=== PATIENT | female | born 1980 | race Caucasian/White ===

== ENCOUNTER 2019-07-10 13:50 | Outpatient (CLI) | payer OTHER, SELFPAY ==
--- NOTE | ~2019-07-10 | US_ITS ---
EXAMINATION: US venous doppler LE EXAM DATE: 07/10/2019 14:31 INDICATION: History of DVT. On blood thinners. TECHNIQUE: Multiple grayscale, color flow and Doppler images of the left lower extremity deep venous system were obtained and reviewed. Comparison is made to prior examination from 04/22/2019. FINDINGS: The left common femoral, femoral and profunda veins demonstrate normal color flow, respirat ory variation, augmentation and compressibility. Compressibility, color flow confirmed within the le ft popliteal, posterior tibial, peroneal, and greater saphenous veins. Previously seen femoral, sydney angelo DVT has resolved. IMPRESSION: No left lower extremity deep venous thrombosis. Reviewed, dictated and finalized at location B. SINGER
== END 2019-07-10 13:51 | disposition home or self-care (01) ==
PROVIDERS: PCP Internal Medicine; Visit Provider Internal Medicine
DX: I82.412 Acute embolism and thrombosis of left femoral vein (principal); Z79.01 Long term (current) use of anticoagulants
CPT/HCPCS: 93971

== ENCOUNTER 2019-08-28 14:36 | Outpatient (CLI) | payer OTHER, SELFPAY ==
[2019-08-28 15:01] LABS: Basophils Percent Auto 0.4 % (0.2-1.2); Eosinophils Percent Auto 0.6 % (0-4.4); Hematocrit 37.8 % (37.0-47.0); Hemoglobin 12.6 g/dL (12.0-15.0); Immature Granulocyte Absolute 0.01 K/mm3 (0.00-0.031); Immature Granulocyte Percent A 0.1 % (0-0.5); Lymphocytes Absolute Auto 2.13 K/mm3 (0.9-3.2); Lymphocytes Percent Auto 31.1 % (18.3-44.2); Mean Corpuscular HGB Conc 33.3 g/dl (32-36); Mean Corpuscular Hemoglobin 30.4 pg (26-34); Mean Corpuscular Volume 91.3 fl (80-100); Mean Platelet Volume 9.4 fl (7.4-10.4); Monocytes Absolute Auto 0.6 K/mm3 (0.1-0.6); Monocytes Percent Auto 8.2 % (2.6-8.5); Neutrophils Absolute Auto 4.1 K/mm3 (1.3-6.7); Neutrophils Percent Auto 59.6 % (45.5-73.1); Platelet Count Result 285 k/mm3 (150-375); Red Blood Count 4.14 M/mm3 (4.2-5.4); Red Cell Distribution Width 12.7 % (11.5-14.5); White Blood Count 6.9 K/mm3 (4.5-10.0)
[2019-08-28 16:42] LABS: INR 1.1; Prothrombin Time 13.5 Seconds (11.1-14.7)
[2019-08-30 03:49] LABS: Anti Cardio Antibody IgM <12 MPL (<=12); Anti Cardiolipin Antibody IgA <11 APL (<=11); Anti Cardiolipin Antibody IgG <14 GPL (<=14)
[2019-08-30 04:01] LABS: Homocysteine 6.3 umol/L (<10.4)
[2019-08-30 04:39] LABS: Lupus dRVVT 1:1 Mix Interpreta Not Indicated; Lupus dRVVT Screen 30 sec (<=45); PTT-LA Screen 31 sec (<=40)
[2019-08-30 21:43] LABS: Antithrombin III Activity 104 % activity (80-120)
[2019-09-03 12:21] LABS: APC Ratio 4.5 ratio (>=2.1)
== END 2019-08-28 14:37 | disposition home or self-care (01) ==
LOC: ANHLAB 14:38
PROVIDERS: PCP Internal Medicine; Visit Provider Internal Medicine Hematology & Oncology
DX: I82.5Z2 Chronic embolism and thrombosis of unspecified deep veins of left distal lower extremity (principal); Z86.718 Personal history of other venous thrombosis and embolism
CPT/HCPCS: 36415; 81240; 81241; 83090; 85025; 85300; 85303; 85306; 85307; 85597; 85598; 85610; 85613; 85670; 85730; 86146; 86147

== ENCOUNTER 2019-11-06 15:51 | Outpatient (CLI) | payer OTHER, SELFPAY ==
--- NOTE | ~2019-11-06 | US_ITS ---
EXAMINATION: US venous doppler [facility] EXAM DATE: 11/06/2019 16:46 INDICATION: Acute left leg pain. TECHNIQUE: Multiple grayscale, color flow and Doppler images of the left lower extremity deep venous system were obtained and reviewed. Comparison is made to prior examination from 07/10/2019. FINDINGS: The left common femoral, femoral and profunda veins demonstrate normal color flow, respirat ory variation, augmentation and compressibility. Compressibility, color flow confirmed within the le ft popliteal, posterior tibial, peroneal, and greater saphenous veins. IMPRESSION: 1. No left lower extremity deep venous thrombosis. Reviewed, dictated and finalized at location A.
== END 2019-11-06 15:52 | disposition home or self-care (01) ==
PROVIDERS: PCP Internal Medicine; Visit Provider Internal Medicine Hematology & Oncology
DX: I82.452 Acute embolism and thrombosis of left peroneal vein (principal)
CPT/HCPCS: 93971

== ENCOUNTER 2020-01-09 16:43 | Outpatient (CLI) | payer OTHER, SELFPAY ==
--- NOTE | ~2020-01-09 | MM_ITS ---
EXAMINATION: MM screening corey BI w david HISTORY: Screening TECHNIQUE: Craniocaudal and mediolateral oblique 3-D tomosynthesis images were obtained and synthetic 2-D images were generated. CAD analysis was submitted and interpreted. COMPARISON: 01/07/2012 BREAST PARENCHYMAL COMPOSITION: The breasts are heterogeneously dense, which may obscure small masses . FINDINGS: There is no evidence of suspicious mass, calcification, or architectural distortion to sugg est malignancy in either breast. There has been no suspicious interval change. IMPRESSION: 1. No mammographic evidence of malignancy. 2. Recommend routine screening mammography in one year. BI-RADS Category 1: Negative Reviewed, dictated and finalized at location A.
== END 2020-01-09 16:44 | disposition home or self-care (01) ==
LOC: ANHIMG 16:44
PROVIDERS: PCP Internal Medicine; Visit Provider Obstetrics & Gynecology
DX: Z12.31 Encounter for screening mammogram for malignant neoplasm of breast (principal)
CPT/HCPCS: 77063; 77067

== ENCOUNTER 2020-05-09 15:37 | Emergency (ER) | payer OTHER, SELFPAY ==
--- NOTE | ~2020-05-09 | US_ITS ---
EXAMINATION: US venous doppler [facility] DATE: 05/09/2020 16:11 INDICATION: Left lower limb pain TECHNIQUE: Acosta scale images without and with compression and Doppler images of the left lower extrem ity veins were obtained. COMPARISON: None FINDINGS: The left common femoral vein, profunda femoral vein, femoral vein, popliteal vein, peroneal trunk, posterior tibial veins, and greater saphenous vein are patent. IMPRESSION: 1. Patent left lower extremity veins. No evidence of deep venous thrombosis. Reviewed, dictated and finalized at location A. 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
[2020-05-09 15:42] VITALS: BP 140/60; PULSE 71; RESP 17; TEMP 36.5; O2SAT 100
[2020-05-09 16:48] LABS: Basophils Percent Auto 0.4 % (0.2-1.2); Eosinophils Absolute Auto 0.1 K/mm3 (0-0.3); Eosinophils Percent Auto 0.7 % (0-4.4); Hematocrit 37.1 % (37.0-47.0); Hemoglobin 12.9 g/dL (12.0-15.0); Immature Granulocyte Absolute 0.03 K/mm3 (0.00-0.031); Immature Granulocyte Percent A 0.4 % (0-0.5); Lymphocytes Percent Auto 31.3 % (18.3-44.2); Mean Corpuscular HGB Conc 34.8 g/dl (32-36); Mean Corpuscular Hemoglobin 30.7 pg (26-34); Mean Corpuscular Volume 88.3 fl (80-100); Mean Platelet Volume 9.8 fl (7.4-10.4); Monocytes Absolute Auto 0.6 K/mm3 (0.1-0.6); Monocytes Percent Auto 7.5 % (2.6-8.5); Neutrophils Absolute Auto 4.4 K/mm3 (1.3-6.7); Neutrophils Percent Auto 59.7 % (45.5-73.1); Platelet Count Result 344 k/mm3 (150-375); White Blood Count 7.3 K/mm3 (4.5-10.0)
[2020-05-09 16:57] LABS: INR 1.1; Prothrombin Time 14.5 Seconds (11.1-14.7)
[2020-05-09 16:58] LABS: Partial Thromboplastin Time 27.5 SECONDS (22.3-36.8)
[2020-05-09 17:02] LABS: D Dimer 0.22 ug/mL (<0.48)
--- NOTE | 2020-05-09 17:13 | ED.EXTPRO ---
HPI - Extremity Problem General Chief complaint: Extremity Problem,Nontraumatic Stated complaint: ?? dvt LEFT LEG Time Seen by Provider: 05/09/20 16:19 Source: RN notes reviewed History of Present Illness HPI Narrative: Patient presents emergency department from home for left calf pain. Patient states the pain has been ongoing for the past 4 days states mild aching in the left posterior calf. She states she became worried because she had a DVT approximately 1 year ago. The DVT was following left hip surgery and she is no longer on blood thinners she did follow-up with hematology following this and it was decided that time she is no longer needed blood thinners patient denies any direct trauma or injury she denies any pain of the knee or ankle full range of motion of both Related Data Allergies Allergy/AdvReac Type Severity Reaction Status Date / Time No Known Allergies Allergy Unknown Verified 05/09/20 15:46 Review of Systems Review of Systems: Narrative: Gen.: Denies fevers or chills ENT: Denies congestion Respiratory: Denies shortness of breath or cough CV: Denies chest pain or palpitations GI: Denies abdominal pain nausea, emesis or diarrhea Musculoskeletal: See HPI Neuro: Denies numbness, tingling, weakness or focal weakness Skin: Denies rash Except as documented, all other systems reviewed and negative PMF Past Medical History Medical History DVT (deep venous thrombosis) History of DVT (deep vein thrombosis) Labral tear of left hip joint Surgical History Surgical History (Updated 04/22/19 @ 09:43 by Duncan Franklin) Hx of section Status post hip surgery lt periacetabular osteotomy with labral repair Family History Family History (Updated 03/15/19 @ 13:07 by DOCTOR UNKNOWN) Father Hypertension Grandparent Hypertension Social History Social History Smoking status: Never smoker Alcohol intake: current Gender identity (if verbalized by the patient): Female Exam Narrative: Exam Narrative: APPEARANCE: No acute distress, nontoxic, resting in bed Eyes: EOMI HEENT: Normocephalic, atraumatic, RESPIRATORY: No respiratory distress MUSCULOSKELETAl: Mild tenderness over left posterior calf Erythema or ecchymosis no tender of the ankle or knee with full range of motion of both dorsalis pedis pulse 2+ neurovascular intact NEURO: Awake and alert. Following commands, speech normal, no focal deficits SKIN:: Warm, dry. Normal Color no rash or lesions Course Course Emergency Course: Discussed with patient results of workup and diagnosis. Discussed need for follow-up with primary care, proper use of medication, and reasons to return to the emergency department. Patient understands and agrees to current treatment plan Vital Signs Vital signs: Vital Signs Temperature 97.7 F 05/09/20 15:42 Pulse Rate 71 05/09/20 15:42 Respiratory Rate 17 05/09/20 15:42 Blood Pressure 140/60 05/09/20 15:42 Pulse Oximetry 100 05/09/20 15:42 Temperature 97.7 F 05/09/20 15:42 Pulse Rate 71 05/09/20 15:42 Respiratory Rate 17 05/09/20 15:42 Blood Pressure 140/60 05/09/20 15:42 Pulse Oximetry 100 05/09/20 15:42 MDM - Extremity (Nontraumatic) Lab Data Result diagrams: 05/09/20 15:47 Labs: Lab Results 05/09/20 05/09/20 Range/Units 15:47 15:47 WBC 7.3 (4.5-10.0) K/mm3 RBC 4.20 (4.2-5.4) M/mm3 Hgb 12.9 (12.0-15.0) g/dL Hct 37.1 (37.0-47.0) % MCV 88.3 (80-100) fl MCH 30.7 (26-34) pg MCHC 34.8 (32-36) g/dl RDW 12.0 (11.5-14.5) % Plt Count 344 (150-375) k/mm3 MPV 9.8 (7.4-10.4) fl Immature Gran % (Auto) 0.4 (0-0.5) % Neut % (Auto) 59.7 (45.5-73.1) % Lymph % (Auto) 31.3 (18.3-44.2) % [place] % (Auto) 7.5 (2.6-8.5) % Eos % (Auto) 0.7 (0-4.4) % Baso % (Auto) 0.4 (0.2-1.2) % Lymph # (Auto
[2020-05-09 17:46] VITALS: BP 131/90; PULSE 63; RESP 16; TEMP 36.8; O2SAT 100
== END 2020-05-09 17:47 | disposition home or self-care (01) ==
PROVIDERS: Emergency Provider Emergency Medicine; PCP Internal Medicine
DX: M79.662 Pain in left lower leg (principal); Z86.718 Personal history of other venous thrombosis and embolism
CPT/HCPCS: 36415; 85025; 85380; 85610; 85730; 93971; 99284

== ENCOUNTER 2021-03-18 14:35 | Outpatient (CLI) | payer OTHER, SELFPAY ==
--- NOTE | ~2021-03-18 | MM_ITS ---
EXAMINATION: MM screening corey BI w david HISTORY: Screening mammogram TECHNIQUE: Craniocaudal and mediolateral oblique 3-D tomosynthesis images were obtained and synthetic 2-D images were generated. CAD analysis was submitted and interpreted. COMPARISON: 02/09/2020 bilateral digital screening mammogram BREAST PARENCHYMAL COMPOSITION: The breasts are heterogeneously dense, which may obscure small masses . FINDINGS: Biopsy marker on the left; history of prior benign left breast biopsy. There is no evidence of suspicious mass, calcification, or architectural distortion to suggest malignancy in either breas t. There has been no suspicious interval change. IMPRESSION: 1. No mammographic evidence of malignancy. 2. Recommend routine screening mammography in one year. BI-RADS Category 1: Negative Reviewed, dictated and finalized at location A.
== END 2021-03-18 14:36 | disposition home or self-care (01) ==
PROVIDERS: PCP Internal Medicine; Visit Provider Obstetrics & Gynecology
DX: Z12.31 Encounter for screening mammogram for malignant neoplasm of breast (principal)
CPT/HCPCS: 77063; 77067

== ENCOUNTER 2022-04-09 08:46 | Outpatient (CLI) | payer OTHER, SELFPAY ==
--- NOTE | ~2022-04-09 | MM_ITS ---
EXAMINATION: MM screening corey BI w david HISTORY: Screening mammogram TECHNIQUE: Craniocaudal and mediolateral oblique 3-D tomosynthesis images were obtained and synthetic 2-D images were generated. CAD analysis was submitted and interpreted. COMPARISON: 03/18/2021, 01/09/2020 bilateral screening mammogram examinations BREAST PARENCHYMAL COMPOSITION: The breasts are heterogeneously dense, which may obscure small masses . FINDINGS: Biopsy marker on the left; history of prior benign left breast biopsy. There is no evidence of suspicious mass, calcification, or architectural distortion to suggest malignancy in either breas t. There has been no suspicious interval change. IMPRESSION: 1. No mammographic evidence of malignancy. 2. Recommend routine screening mammography in one year. BI-RADS Category 1: Negative Reviewed, dictated and finalized at location A. 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
== END 2022-04-09 08:47 | disposition home or self-care (01) ==
LOC: ANHIMG 08:47
PROVIDERS: PCP Internal Medicine; Visit Provider Obstetrics & Gynecology
DX: Z12.31 Encounter for screening mammogram for malignant neoplasm of breast (principal)
CPT/HCPCS: 77063; 77067

== ENCOUNTER 2023-01-09 10:14 | Emergency (ER) | payer OTHER, SELFPAY ==
[2023-01-09 10:32] VITALS: BP 120/76; PULSE 74; RESP 16; TEMP 37.2; O2SAT 100
--- NOTE | 2023-01-09 10:49 | ED.EAR ---
HPI - Ear Problem General Chief complaint: Ear Stated complaint: left ear pain Time Seen by Provider: 01/09/23 10:56 Source: patient and RN notes reviewed Mode of arrival: ambulatory Limitations: no limitations History of Present Illness HPI Narrative: 42-year-old female presents with concern for left ear pain for 2 days. She denies drainage from the ear. Reports tenderness when she pulls on the ear. She denies fever, aches, chills, sweats. She denies nasal congestion, rhinorrhea, sore throat MD Complaint: ear pain Related Data Allergies Allergy/AdvReac Type Severity Reaction Status Date / Time No Known Allergies Allergy Unknown Verified 01/09/23 10:20 Review of Systems Review of Systems: CONSTITUTIONAL: Denies malaise, chills, sweats, or fever. EYES: Denies visual changes, redness, or discharge. ENT: Denies rhinorrhea, congestion, sinus pain, and sore throat. Reports left ear pain CARDIOVASCULAR: Denies chest pain, palpitations, or edema. RESPIRATORY: Denies cough. Denies dyspnea. GASTROINTESTINAL: Denies abdominal pain, nausea, vomiting, diarrhea SKIN: Denies rash or itching. MUSCULOSKELETAL: Denies myalgia. NEUROLOGIC: Denies headache. All systems reviewed & are unremarkable except as noted in HPI and below PMFSH Past Medical History Medical History DVT (deep venous thrombosis) History of DVT (deep vein thrombosis) Labral tear of left hip joint Surgical History Surgical History (Updated 04/22/19 @ 09:43 by Duncan Franklin) Hx of section Status post hip surgery lt periacetabular osteotomy with labral repair Family History Family History (Updated 03/15/19 @ 13:07 by DOCTOR UNKNOWN) Father Hypertension Grandparent Hypertension Social History Social History Smoking status: Never smoker Alcohol intake: current Alcohol use details: occasional Gender identity (if verbalized by the patient): Female Comments At time of signature, agree with nursing past medical, surgical, social and family history. There is no relevant family history pertinent to the presenting complaint Exam Narrative: GENERAL: Well-appearing, well-nourished, and in no acute distress. HEAD: Normocephalic EYES: PERRLA, conjunctivae clear ENT: Nares clear, turbinates edematous, clear discharge. Mucous membranes moist. TM pearly fishman with sharp light reflex bilaterally; left tragal tenderness with EAC erythema and edema, no drainage NECK: Supple. No lymphadenopathy CHEST: Clear to auscultation, breath sounds equal. No wheezing, rhonchi, rales, or stridor. No respiratory distress, speaks in full sentences. HEART: Regular rate and rhythm. No murmur heard. SKIN: Warm, dry, no rash. NEURO: Alert and oriented x3. PSYCH: Normal mood and affect Course Course Emergency Course: Patient is aware of diagnosis, understands and agrees to treatment plan. Anticipatory guidance given. Patient agrees to follow-up as directed and is aware of reasons to seek care at the emergency department. Portions of this record may have been created with voice recognition software Level of Care: Express Care Visit Vital Signs Vital signs: Vital Signs Temperature 98.9 F 01/09/23 10:32 Pulse Rate 74 01/09/23 10:32 Respiratory Rate 16 01/09/23 10:32 Blood Pressure 120/76 01/09/23 10:32 Pulse Oximetry 100 01/09/23 10:32 Oxygen Delivery Room Air 01/09/23 10:32 Temperature 98.9 F 01/09/23 10:32 Pulse Rate 74 01/09/23 10:32 Respiratory Rate 16 01/09/23 10:32 Blood Pressure 120/76 01/09/23 10:32 Pulse Oximetry 100 01/09/23 10:32 Oxygen Delivery Room Air 01/09/23 10:32 Reviewed. Medical Decision Making MDM Narrative Medical decision making narrative: Differential diagnosis considered: Johnson virus, strep pharyngitis, allergic rhinitis, upper respiratory tract infection, sinusi
== END 2023-01-09 10:58 | disposition home or self-care (01) ==
PROVIDERS: Emergency Provider Nurse Practitioner; PCP Internal Medicine
DX: H60.92 Unspecified otitis externa, left ear (principal); Z86.718 Personal history of other venous thrombosis and embolism
CPT/HCPCS: 99213; G0463

== ENCOUNTER → 2023-02-04 10:43 | Outpatient (CLI) | payer OTHER, SELFPAY ==
--- NOTE | ~2023-02-04 | US_ITS ---
EXAMINATION: US pelvic complete w TV DATE: 02/04/2023 11:12 INDICATION: Irregular menstruation TECHNIQUE: Multiple transabdominal and endovaginal sonographic images of the pelvis were obtained. COMPARISON: None. FINDINGS: The uterus measures 9.0 x 5.1 x 5.3 cm. The endometrial complex measures 12. The right ovar y measures 3.5 x 1.8 x 3.5 cm. The left ovary measures 2.6 x 1.6 x 2.0 cm. There is normal vascular f low in the ovaries. There is no free fluid in the pelvis. IMPRESSION: 1. No sonographic correlate for the patient's symptoms. Reviewed, dictated and finalized at location B.
== END ==
PROVIDERS: PCP Internal Medicine; Visit Provider Clinical Nurse Specialist
DX: N92.6 Irregular menstruation, unspecified (principal)
CPT/HCPCS: 76830; 76856

== ENCOUNTER 2023-03-31 16:22 | Emergency (ER) | payer OTHER, SELFPAY ==
--- NOTE | 2023-03-31 16:25 | ED.SKABFB ---
HPI - Skin/Abscess/Foreign Bdy General Chief complaint: Skin/Abscess/Foreign Body Stated complaint: Right Leg Wound Time Seen by Provider: 03/31/23 16:30 Source: patient, RN notes reviewed and old records reviewed Mode of arrival: ambulatory Limitations: no limitations History of Present Illness HPI narrative: 42-year-old female presents to the [facility] with complaints of a wound to the anterior posterior in of right lower leg. States approximately 9 days ago she hit it on a bleacher at her son's soccer game. Has been washing it and applying Neosporin. States that she thought it was getting better. Today it develop some swelling, tenderness to the area. Onset (ago): day(s) (9) Related Data Allergies Allergy/AdvReac Type Severity Reaction Status Date / Time No Known Allergies Allergy Unknown Verified 03/31/23 16:31 Review of Systems Review of Systems: All systems reviewed & are unremarkable except as noted in HPI and below Constitutional: Constitutional: Reports no additional constitutional complaints Eyes: Eyes: Reports no additional eye complaints ENT: Reports system reviewed and no additional complaints, except as documented Cardiovascular: Cardiovascular: Reports no additional cardiovascular complaints, Denies chest pain and Denies dyspnea Respiratory: Respiratory: Reports no additional respiratory complaints, Denies chest congestion, Denies cough and Denies dyspnea Gastrointestinal: Gastrointestinal: Reports no additional gastrointestinal complaints, Denies abdominal pain, Denies nausea and Denies vomiting Musculoskeletal: Musculoskeletal: Reports no additional musculoskeletal complaints Integumentary/Breasts: Skin/Breast: Reports as per HPI Neurologic: Reports system reviewed and no additional complaints, except as documented Psychiatric: Psychiatric: Reports no additional psychiatric complaints Allergic/Immunologic: Allergic/Immunologic: Reports no additional allergic/immunologic complaints [facility] Past Medical History Medical History DVT (deep venous thrombosis) History of DVT (deep vein thrombosis) Labral tear of left hip joint Surgical History Surgical History Hx of section Status post hip surgery lt periacetabular osteotomy with labral repair Family History Family History Father Hypertension Grandparent Hypertension Social History Social History Smoking status: Never smoker Alcohol intake: current Alcohol use details: occasional Gender identity (if verbalized by the patient): Female Comments At the time of my signature, I reviewed and agree with the nursing past medical, surgical, social, and family history. There is no relevant family history pertinent to the patient complaint. Exam Const: General: cooperative, healthy appearing, comfortable, no acute distress, well developed, alert and well nourished Nutritional Appearance: well nourished Orientation/consciousness: patient oriented x3 Limitations: no limitations HENMT: Head: normal to inspection Ears: hearing grossly normal bilaterally and external ears normal Face/Nose/Sinus: Normal external nose present, Normal nares present, Normal nasal mucous membranes and turbinates present, normal facial exam and face symmetric Face and sinus: normal facial exam and face symmetric Eyes: General: appearance normal, both eyes and all related structures Alignment and Position: alignment normal Periorbital: periorbital findings normal Pupils: Equal, round and reactive pupils present EOM: EOMs intact bilaterally Neck: Neck: normal visual inspection, full ROM, no lymphadenopathy and no meningeal signs Chest: Chest palpation & inspection: normal inspection of the chest Resp: Effort & Inspection: normal respira
[2023-03-31 16:30] VITALS: BP 135/86; PULSE 67; RESP 16; TEMP 36.6; O2SAT 100
== END 2023-03-31 16:49 | disposition home or self-care (01) ==
PROVIDERS: Emergency Provider Nurse Practitioner; PCP Internal Medicine
DX: L03.115 Cellulitis of right lower limb (principal); Z86.718 Personal history of other venous thrombosis and embolism; W22.09XA Striking against other stationary object, initial encounter
CPT/HCPCS: 99213; G0463

== ENCOUNTER 2023-05-24 10:10 | Outpatient (CLI) | payer OTHER, SELFPAY ==
--- NOTE | ~2023-05-24 | MM_ITS ---
EXAMINATION: MM screening corey BI w david HISTORY: Screening mammogram TECHNIQUE: Craniocaudal and mediolateral oblique 3-D tomosynthesis images were obtained and synthetic 2-D images were generated. Bilateral rotated lateral CC views. CAD analysis was submitted and interp reted. COMPARISON: 04/09/2022, 03/18/2021, 01/09/2020 bilateral screening mammogram examinations BREAST PARENCHYMAL COMPOSITION: The breasts are heterogeneously dense, which may obscure small masses . FINDINGS: Biopsy marker on the left; history of prior benign left breast biopsy. There is no evidence of suspicious mass, calcification, or architectural distortion to suggest malignancy in either breas t. There has been no suspicious interval change. IMPRESSION: 1. No mammographic evidence of malignancy. 2. Recommend routine screening mammography in one year. BI-RADS Category 1: Negative Reviewed, dictated and finalized at location A. 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
== END 2023-05-24 10:11 | disposition home or self-care (01) ==
PROVIDERS: PCP Internal Medicine; Visit Provider Obstetrics & Gynecology
DX: Z12.31 Encounter for screening mammogram for malignant neoplasm of breast (principal)
CPT/HCPCS: 77063; 77067

== ENCOUNTER 2023-05-27 07:55 | Outpatient (CLI) | payer OTHER, SELFPAY ==
[2023-05-27 08:21] LABS: Basophils Absolute Auto 0.1 K/mm3 (0.0-0.1); Basophils Percent Auto 0.8 % (0.2-1.2); Eosinophils Percent Auto 0.6 % (0-4.4); Hematocrit 41.4 % (37.0-47.0); Hemoglobin 13.5 g/dL (12.0-15.0); Immature Granulocyte Absolute 0.02 K/mm3 (0.00-0.031); Immature Granulocyte Percent A 0.3 % (0-0.5); Lymphocytes Absolute Auto 1.64 K/mm3 (0.9-3.2); Lymphocytes Percent Auto 26.3 % (18.3-44.2); Mean Corpuscular HGB Conc 32.6 g/dl (32-36); Mean Corpuscular Hemoglobin 29.9 pg (26-34); Mean Corpuscular Volume 91.8 fl (80-100); Mean Platelet Volume 9.4 fl (7.4-10.4); Monocytes Absolute Auto 0.5 K/mm3 (0.1-0.6); Monocytes Percent Auto 8.3 % (2.6-8.5); Neutrophils Percent Auto 63.7 % (45.5-73.1); Platelet Count Result 297 k/mm3 (150-375); Red Blood Count 4.51 M/mm3 (4.2-5.4); Red Cell Distribution Width 12.6 % (11.5-14.5); White Blood Count 6.2 K/mm3 (4.5-10.0)
== END 2023-05-27 07:56 | disposition home or self-care (01) ==
LOC: ANHSURGERY 07:57
PROVIDERS: PCP Internal Medicine; Visit Provider Obstetrics & Gynecology
DX: Z01.818 Encounter for other preprocedural examination (principal); D21.9 Benign neoplasm of connective and other soft tissue, unspecified
CPT/HCPCS: 36415; 85025; 86850; 86900; 86901

== ENCOUNTER 2023-06-03 00:43 | Day surgery (SDC) | payer OTHER, SELFPAY ==
[2023-05-20 14:01] VITALS: BMI 20.6
--- NOTE | 2023-05-20 14:04 | PC.NURSE ---
Report to the Outpatient Waiting Room, entrance under the green pavilion located off [facility], at time 6:00 on date 06/03/23. Planned Procedure Time: 7:30. Time changes happen often and if your time is changed the preop area will call you the afternoon before. - You and your visitor will be asked to self-screen and do not enter if you have any COVID symptoms. - A mask is optional within the hospital at this time. Patients may have clear liquids (water, carbonated beverages, clear teas, apple juice) until 3 hours prior to surgery (4:30) with a maximum of 20 ounces. - No food from midnight until time of surgery Take the following medications with a SIP of water the morning of surgery: N/A DO NOT STOP ANY OF YOUR OTHER PRESCRIPTION MEDICATIONS PRIOR TO SURGERY ?EXCEPT THE FOLLOWING Medications to discontinue per physician: N/A Date to take last dose: N/A Please no make-up, nail greek, hairspray, perfume, deodorant, or body powder the day of surgery. No jewelry (including any body piercings) or valuables the day of surgery, leave them at home. Please take a shower or bath the night before, or the morning of, surgery with an antibacterial soap. Wear comfortable, loose fitting clothing. - Jewelry must be removed prior to entering the operating room. Rings and piercings that are not removed may be cut off. - The hospital will not accept responsibility for valuables. - Please leave all valuables, including medications, at home the day of surgery. If you are going home after surgery, a licensed heavy truck driver must drive you home. - NO public transportation without another adult if you receive anesthesia. - We recommend that an adult stay with you for 24 hours following discharge. - We also recommend that you do not drive, make important decision, drink alcoholic beverages, or take any drugs that were not prescribed by your health care provider for at least 24 hours after your discharge time. Follow any additional instructions given to you from your surgeon. If you or anyone in your household have experienced Covid symptoms in the past week, please notify your surgeon or the nurse liaison at the phone number below for possible testing. Telephone instructions given to PT - BLANCA ARTEAGA and asked if any additional questions and then verbalized understanding. Patient advised to call surgeon office or pre surgery nurse liaison [phone] if any additional questions.
--- NOTE | 2023-05-31 11:56 | P.HP_ITS ---
H&P: HPI History of Present Illness Date/Time: 05/31/23 11:56 Chief Complaint: Pain/bleeding/uterine fibroids Narrative: So 42 female 2 para 2 for robotic hysterectomy and salpingectomy she has a history of DVT in a candidate for control medications. She has pain with intercourse discomfort in irregular bleeding. Discussed ablation versus IUD placement versus hysterectomy and she opts for the last. Risks and benefits reviewed including a loose with , aspiration, bleeding, transfusion, perforation injury to bowel, bladder, ureters, or other internal organs with need for open laparotomy. She received the [employer]COG handout entitled hysterectomy as post Elicia handout. She had all questions answered. She asked to proceed PMFSH Past Medical History Medical History DVT (deep venous thrombosis) History of DVT (deep vein thrombosis) Labral tear of left hip joint Surgical History Surgical History Hx of section Status post hip surgery lt periacetabular osteotomy with labral repair Family History Family History Father Hypertension Grandparent Hypertension Social History Social History Smoking status: Never smoker Alcohol intake: current Drinks per week: 1 Alcohol use details: occasional Substance use: never Substance use type: does not use Living arrangements: with family Gender identity (if verbalized by the patient): Female Spiritual care concerns: No Meds Home Medications and Allergies Home Medications Medication Instructions Recorded Confirmed Type No Home Medications 05/20/23 05/20/23 History Allergies Allergy/AdvReac Type Severity Reaction Status Date / Time No Known Allergies Allergy Unknown Verified 05/20/23 14:00 Exam Const: General: cooperative, healthy appearing and comfortable Nutritional Appearance: average body habitus Orientation/consciousness: oriented to person, oriented to place and oriented to time HENMT: Head: normal to inspection Chest: Chest palpation & inspection: normal inspection of the chest Resp: Effort & Inspection: normal respiratory effort Cardio: Rate: regular rate Rhythm: regular rhythm Heart sounds: S1 normal heart sound present and S2 normal heart sound present GI: Inspection: normal to inspection : External Female Exam: normal external appearance Speculum Exam - Vagi na: normal appearance of the vagina Speculum Exam - Cervix: normal appearance of the cervix Bimanual exam- vagina & uterus: enlarged and Uterine tenderness Bimanual Exam- Adnexa, other: normal adnexae Assessment and Plan Assessment and plan (1) Pelvic pain: Code(s): R10.2 - Pelvic and perineal pain Status: Acute (2) Uterine fibroid: Code(s): D25.9 - Leiomyoma of uterus, unspecified Status: Acute (3) Excessive bleeding: Code(s): R58 - Hemorrhage, not elsewhere classified Status: Acute Plan Robotic total vaginal hysterectomy and bilateral salpingectomy
--- NOTE | 2023-06-02 14:32 | WPDANESEPPF ---
Anes - Initial Pre Proc Eval Procedure: Operation Date: 06/03/23 07:30 Proposed Procedures p Robotic Assisted Total Vaginal Hysterectomy with Bilateral Salpingectomy - Prasad Mcmillan MD Date/Time: 06/02/23 14:32 Surgeon: Prasad Mcmillan MD Pre Op Diagnosis: irregular excessive bleeding,fibroids Patient Data Age: 42 Gender: F Height: 1.63 m Weight: 54.45 kg Allergies Allergy/AdvReac Type Severity Reaction Status Date / Time No Known Allergies Allergy Unknown Verified 05/20/23 14:00 Home Medications Medication Instructions Recorded Confirmed Type hydrocodone 5 mg-acetaminophen 325 1 tablet PO Q4H PRN pain #20 tabs 06/03/23 Rx mg tablet Patient hx anesthesia problems: none Family hx anesthesia problems: none Results Review: All pre-operative results and documents have been reviewed as part of the pre-operative evaluation. FORMERLY [facility] Past Medical History Medical History DVT (deep venous thrombosis) History of DVT (deep vein thrombosis) Labral tear of left hip joint Surgical History Surgical History Hx of section Status post hip surgery lt periacetabular osteotomy with labral repair Family History Family History Father Hypertension Grandparent Hypertension Social History Social History Smoking status: Never smoker Alcohol intake: current Drinks per week: 1 Alcohol use details: occasional Substance use: never Substance use type: does not use Living arrangements: with family Gender identity (if verbalized by the patient): Female Spiritual care concerns: No Anes - Eval Final PreProcedure Day of Procedure 06/02/23 14:32 Patient weight: normal Heart: regular rate and rhythm Lungs: clear to auscultation Airway: Mallampati scale class II Neurological: alert and oriented Last oral intake: >/= 8 hours ASA classification: II Emergent: no Anesthetic plan: proceed Anesthesia type and monitoring: general ETT and standard monitoring Results Review: All pre-operative results and documents have been reviewed as part of the pre-operative evaluation. Informed Consent: The patient's anesthetic plan and its attendant risks and benefits were discussed with the patient/family/POA. Questions were solicited and answers provided to the satisfaction of the patient/family/POA.
[2023-06-03] VITALS (8 sets, daily range): BP systolic 98–142; BP diastolic 59–99; PULSE 49–74; RESP 12–18; TEMP 36.4–37.4; O2SAT 98–100
--- NOTE | 2023-06-03 06:47 | WPDHPUPDATE1 ---
History and Physical Update Update Date/Time: 06/03/23 06:47 History and Physical has been reviewed, including an updated exam of the patient. There are NO changes in the patient's condition. Risks, benefits, and alternatives have been discussed and questions answered. Patient agrees to proceed with procedure.
[2023-06-03] MEDS: LACTATED RINGERS 1,000 ML 30 ML IV CONT ×2 (07:00→08:45)
[2023-06-03] MEDS: ACETAMINOPHEN 500 MG TABLET 1000 MG PO (07:00)
[2023-06-03] MEDS: KETOROLAC 15 MG/ML VIAL (*BKC) IV PUSH (07:00)
[2023-06-03] MEDS: ceFAZolin 2 GM/D5W 50 ML 2 GM/50 ML BAG IVPB (07:26)
--- NOTE | 2023-06-03 08:26 | P.OP_ITS ---
Procedure Note - Detailed Date of Procedure 06/03/23 Pre-op Diagnosis irregular excessive bleeding,fibroids Post-op Diagnosis Same Procedure Performed Robotic total vaginal hysterectomy bilateral salpingectomy Surgeon Prasad Mcmillan MD Anesthesia General Indications is a 42-year-old female with large fibroid uterus Findings enlarged uterus. Normal-appearing ovaries and tubes Description of Procedure patient prepped draped sterile fashion placed dorsal lithotomy position. Tracheal anesthesia weighted speculum placed in posterior fornix vagina. Anterior lip of the cervix grasped with. Uterus sounded to 10cm. Serial dilatation with fragmented dilators performed followed by passage of the 8. VÍCTOR and the 3. Cold cup. Next the 16 [place] catheter was placed in bladder drained of clear urine. Remainder the instruments and the gloves were changed. A supraumbilical incision made in the Veress needle passed in the abdomen. Abdomen filled with CO2 gas to 15. The 8mm trocar advanced the abdomen. Downside visualized no injury seen. Patient placed in Trendelenburg and right left lateral quadrant incisions made. 8Mm trocars advanced under direct visualization assuring no injury. Right upper quadrant incision made the 8mm trocar advanced under direct visualization assuring no injury. The robot was docked. Attention was turned to the cancer genetic counselor. The left round ligament was grasped, b urned, cut. Anteriorly a bladder flap was then formed by sharply dissecting the peritoneum and reflecting the bladder caudally away from the cervix uterus to the opposite round ligament which was clamped, burned, cut. Next the fallopian tube on the left was skeletonized and were up removed from its attachment to the ovary and left attached to its uterine in origin. In like fashion the right fal lopian tube was grasped and it was dissected away from the ovary and left attached to its uterine origin. Next the utero-ovarian ligament was skeletonized on the left clamping burning and cutting and bringing this to level of previously cut round ligament thus conserving the left ovary. Conserving the right ovary, the utero-ovarian ligament was clamped, burned, cut and brought to the level of the previously cut round ligament. The cardinal broad ligaments on the left were serially skeletonized serially clamping burning cutting and hugging the cervix and uterus until the uterine vessels could be seen on the left. These were large and tortuous. These were individually clamped, burned, cut. In similar fashion on the right the cardinal broad ligaments were serially skeletonized clamping burning cutting and hugging the cervix and uterus until the uterine vessels could be seen on the l Right. Uterine vessels were individually clamped, burned, cut. Blanching the uterus was noted and a colpotomy incision was made. The cervix uterus and tubes removed through the vagina. The vagina was then closed with continuous running 0V lock from lateral edge to lateral edge back to the midline. Irrigation undertaken until clear. Blood loss was estimated 25cc. [place] term was placed over the raw surface areas. Hemostasis was assured in the robot was undocked. The gas and removed from the abdomen the trocars removed from the abdomen. Incisions closed with 4 Monocryl and glue. Instruments removed from the vagina the patient was awakened. She went to recovery in satisfactory condition. All sponge, needle, instrument counts were correct. There were no immediate complications Estimated Blood Loss 25 Drains No Packing No Pathology Yes Complications No immediate complications Condition Stable Disposition PACU
--- NOTE | 2023-06-03 08:31 | PM.DS ---
DS: Admitting Diagnosis Discharge Date 06/05/2022 Admitting Diagnosis excessive bleeding/uterine fibroid/pelvic pain DS: Discharge Diagnosis Discharge Diagnosis (1) Excessive bleeding: Code(s): R58 - Hemorrhage, not elsewhere classified Status: Acute (2) Uterine fibroid: Code(s): D25.9 - Leiomyoma of uterus, unspecified Status: Acute (3) Pelvic pain: Code(s): R10.2 - Pelvic and perineal pain Status: Acute DS: Summary Hospital Course Reason for hospitalization: patient was admitted on 06/03/22 for robotic total vaginal hysterectomy and bilateral salpingectomy Hospital Course: the patient's hospital course unremarkable. She remained afebrile. She was up, voiding without difficulty, ambulating eating regular generally complaints. Time Spent with Patient Time attestation: Total time spent providing and/or coordinating discharge services: Exam Const: General: cooperative, healthy appearing and comfortable Nutritional Appearance: average body habitus Orientation/consciousness: oriented to person, oriented to place and oriented to time HENMT: Head: normal to inspection Resp: Effort & Inspection: normal respiratory effort Cardio: Rate: regular rate Rhythm: regular rhythm Heart sounds: S1 normal heart sound present and S2 normal heart sound present GI: Inspection: normal to inspection and incision ( Wounds are clean dry and intact) DS: Data Data Completed and Pending Pending studies at discharge: Pending at discharge 06/03/23 08:19 Surgical [PTH] Routine Discharge Plan Discharge Patient Disposition: Home, Self-Care Patient Instructions: Laparoscopic Hysterectomy (DC) Stand Alone Forms: General Discharge Instructions Follow-up/Referrals: Prasad Pedersen MD [Physician] - Call for Appointment Discharge Medications: New hydrocodone-acetaminophen 5-325 mg tablet 1 tablet PO Q4H PRN (Reason: pain) Qty: 20 0RF
[2023-06-03] MEDS: fentaNYL CITRATE INJ (*CRX) 100 MCG/2 ML VIAL 25 MCG IV PUSH ×4 (09:06→09:28)
--- NOTE | 2023-06-03 09:47 | ADMGEN ---
This patient, Ayesha Lobo, was admitted to OB 2nd Floor Room 289-00. Patient/family oriented to hospital policies and general routines including ID bracelet, bed and alarms, visiting hours, pain management, procedures, bathroom and other care routines, personal items, smoking policy, room service/diet, and visiting hours. Information on how to activate the Rapid Response Team has been discussed. Patient/Family are encouraged to report perceived risks to care and to ask questions if they do not understand what they are told or what they should do.
[2023-06-03] MEDS: KETOROLAC 30 MG/ML VIAL (*BKC) IV PUSH (10:17)
[2023-06-03] MEDS: DEXTROSE 5%/LACTATED RINGERS 1,000 ML 125 ML IV CONT (10:17)
[2023-06-03] MEDS: HYDROcodone/acetaminophen (*CRX) 5-325 MG TABLET 1 TAB PO ×3 (14:04→21:08)
[2023-06-03] MEDS: SIMETHICONE 80 MG TAB.CHEW PO ×2 (14:05→17:12)
[2023-06-03] MEDS: IBUPROFEN 600 MG TABLET PO (17:14)
[2023-06-03] MEDS: DOCUSATE SODIUM 100 MG CAPSULE PO (17:15)
[2023-06-04 04:00] VITALS: BP 107/69; PULSE 57; RESP 18; TEMP 36.7; O2SAT 100
[2023-06-04] MEDS: HYDROcodone/acetaminophen (*CRX) 5-325 MG TABLET 1 TAB PO (04:19)
[2023-06-04] MEDS: SIMETHICONE 80 MG TAB.CHEW PO ×2 (04:22→08:31)
[2023-06-04 05:19] LABS: Basophils Percent Auto 0.2 % (0.2-1.2); Eosinophils Percent Auto 0.1 % (0-4.4); Hematocrit 34.8 % (37.0-47.0); Hemoglobin 11.8 g/dL (12.0-15.0); Immature Granulocyte Absolute 0.05 K/mm3 (0.00-0.031); Immature Granulocyte Percent A 0.3 % (0-0.5); Lymphocytes Absolute Auto 2.36 K/mm3 (0.9-3.2); Lymphocytes Percent Auto 13.5 % (18.3-44.2); Mean Corpuscular HGB Conc 33.9 g/dl (32-36); Mean Corpuscular Hemoglobin 30.3 pg (26-34); Mean Corpuscular Volume 89.5 fl (80-100); Mean Platelet Volume 10.1 fl (7.4-10.4); Monocytes Absolute Auto 1.4 K/mm3 (0.1-0.6); Monocytes Percent Auto 7.8 % (2.6-8.5); Neutrophils Absolute Auto 13.7 K/mm3 (1.3-6.7); Neutrophils Percent Auto 78.1 % (45.5-73.1); Platelet Count Result 217 k/mm3 (150-375); Red Blood Count 3.89 M/mm3 (4.2-5.4); Red Cell Distribution Width 12.5 % (11.5-14.5); White Blood Count 17.5 K/mm3 (4.5-10.0)
--- NOTE | 2023-06-04 07:34 | PM.GYNPNOP ---
[employer]ING [employer] - A/P Postoperative Procedures: Procedures Operation Date: 06/03/23 07:30 Actual Procedure Side Surgeon p Robotic Assisted Total Vaginal Hysterectomy with Bilateral Salpingectomy Bilateral Prasad Mcmillan MD Postoperative day: 1 Postoperative status: doing well Postoperative plan: routine post-op care and discharge Time Spent With Patient Time: Total time spent is greater than 50% in coordination of care (as documented) at patient's floor/unit and/or counseling patient: Time with patient: less than 15 minutes [employer]- PN:Subj Post-Op Subjective Date/time seen: 06/04/23 07:34 Subjective: patient reports feeling better, patient has no complaints, pain is well controlled and patient is tolerating oral intake Exam Narrative: abdomen soft, nt, nd inc. c/d/i [employer] - PN: Obj Data Vital Signs Vital Signs: Vital Signs - 24 hr 06/03/23 08:45 06/03/23 09:00 06/03/23 09:15 Temperature 97.5 F L Pulse Rate 63 50 L 49 L Respiratory Rate 16 12 16 Blood Pressure 141/86 H 142/99 H 129/83 Pulse Oximetry 100 100 100 Oxygen Delivery Simple Face Mask Simple Face Mask Room Air Oxygen Flow Rate 6 6 06/03/23 09:30 06/03/23 09:50 06/03/23 15:00 Temperature 98.1 F 99.4 F Pulse Rate 52 L 51 L 74 Respiratory Rate 14 16 16 Blood Pressure 123/77 131/75 98/64 L Pulse Oximetry 99 100 98 Oxygen Delivery Room Air Oxygen Flow Rate 06/03/23 20:00 06/04/23 04:00 Temperature 98.1 F 98.1 F Pulse Rate 66 57 L Respiratory Rate 18 18 Blood Pressure 115/62 107/69 Pulse Oximetry 100 100 Oxygen Delivery Oxygen Flow Rate Intake/Output Intake/Output: Intake & Output 06/01/23 06/02/23 06/03/23 06/04/23 23:59 23:59 23:59 23:59 Intake Total 2414 Output Total 1380 Balance 1034 Meds/Results Medications: Active Medications Generic Name Dose Route Start Last Admin Trade Name Freq PRN Reason Stop Dose Admin Hydrocodone Bitart/Acetaminophen 1 tab 06/03/23 09:39 06/04/23 04:19 Hydrocodone/Acetaminophen (*Crx) 5-325 Mg Tablet PO 1 tab Q3H PRN Administration Pain Rated 5 or Less Hydrocodone Bitart/Acetaminophen 1 tab 06/03/23 09:39 Hydrocodone/Acetaminophen (*Crx) 10-325 Mg Tablet PO Q3H PRN Pain Rated 6 or Greater Docusate Sodium 100 mg 06/03/23 09:39 06/03/23 17:15 Docusate Sodium 100 Mg Capsule PO 100 mg BID TUCKER Administration Enoxaparin Sodium 40 mg 06/03/23 09:39 06/03/23 10:06 Enoxaparin 40 Mg/0.4 Ml Syringe SUB-Q Not Given DAILY TUCKER Ibuprofen 600 mg 06/03/23 09:39 06/03/23 17:14 Ibuprofen 600 Mg Tablet PO 600 mg Q6H PRN Administration Cramping Ketorolac Tromethamine 30 mg 06/03/23 09:39 06/03/23 10:17 Ketorolac 30 Mg/Ml Vial (*Bkc) IV PUSH 06/08/23 09:38 30 mg Q6H PRN Administration Pain Rated 4-6 Naloxone HCl 0.1 mg 06/03/23 09:39 Naloxone Hcl 0.4 Mg/Ml Vial IV PUSH Q2M PRN Respiratory rate less than 10 Ondansetron HCl 4 mg 06/03/23 09:39 Ondansetron Inj 4 Mg/2 Ml Vial IV PUSH Q6H PRN Nausea And Vomiting Simethicone 80 mg 06/03/23 09:39 06/04/23 04:22 Simethicone 80 Mg Tab.Chew PO 80 mg Q2H PRN Administration Gas Labs 06/04/23 04:27 Labs: Laboratory Results - last 24 hr 06/04/23 04:27 WBC 17.5 H RBC 3.89 L Hgb 11.8 L Hct 34.8 L MCV 89.5 MCH 30.3 MCHC 33.9 RDW 12.5 Plt Count 217 MPV 10.1 Immature Gran % (Auto) 0.3 Neut % (Auto) 78.1 H Lymph % (Auto) 13.5 L [place] % (Auto) 7.8 Eos % (Auto) 0.1 Baso % (Auto) 0.2 Lymph # (Auto) 2.36 [place] # (Auto) 1.4 H Eos # (Auto) 0.0 Baso # (Auto) 0.0 Abs Immat Gran (auto) 0.05 H Absolute Neuts (auto) 13.7 H Absolute Nucleated RBC 0.0 Nucleated RBC % 0.0
--- NOTE | 2023-06-04 07:59 | WPDANESPN ---
Anes - Prog Note Post-Op Date/Time: 06/04/23 07:59 Cardiovascular status: normal Respiratory status: normal Airway patency: baseline Mental status: baseline Post-Op hydration status: normal Vital Signs: Last Vital Signs Temp 36.7 C 06/04/23 04:00 Pulse 57 L 06/04/23 04:00 Resp 18 06/04/23 04:00 BP 107/69 06/04/23 04:00 Pulse Ox 100 06/04/23 04:00 O2 Del Method Room Air 06/03/23 09:30 O2 Flow Rate 6 06/03/23 09:00 Pain Score (VAS): 08/06 I/O: Intake & Output 06/03/23 06/03/23 06/04/23 15:59 23:59 07:59 Intake Total 2364 Output Total 1080 300 Balance 1284 -300 Laboratory Tests 06/04/23 04:27 06/04/23 04:27 WBC 17.5 H RBC 3.89 L Hgb 11.8 L Hct 34.8 L MCV 89.5 MCH 30.3 MCHC 33.9 RDW 12.5 Plt Count 217 MPV 10.1 Immature Gran % (Auto) 0.3 Neut % (Auto) 78.1 H Lymph % (Auto) 13.5 L [place] % (Auto) 7.8 Eos % (Auto) 0.1 Baso % (Auto) 0.2 Lymph # (Auto) 2.36 [place] # (Auto) 1.4 H Eos # (Auto) 0.0 Baso # (Auto) 0.0 Abs Immat Gran (auto) 0.05 H Absolute Neuts (auto) 13.7 H Absolute Nucleated RBC 0.0 Nucleated RBC % 0.0 Post-procedural complaints: none Patient Feedback: Patient satisfied with anesthetic care.
[2023-06-04 08:30] VITALS: BP 130/81; PULSE 63; RESP 18; TEMP 36.9
[2023-06-04] MEDS: DOCUSATE SODIUM 100 MG CAPSULE PO (08:31)
[2023-06-04] MEDS: IBUPROFEN 600 MG TABLET PO (08:31)
[2023-06-04] MEDS: ENOXAPARIN 40 MG/0.4 ML SYRINGE SUB-Q (08:31)
== END 2023-06-04 10:00 | disposition home or self-care (01) ==
LOC: ANHSURGERY 06:49 → ANHOB2 09:41
PROVIDERS: PCP Internal Medicine; Visit Provider Obstetrics & Gynecology
PROC: (CPT 58552; principal; 2023-06-03 07:30)
DX: D25.1 Intramural leiomyoma of uterus (principal); N72 Inflammatory disease of cervix uteri; R10.2 Pelvic and perineal pain; N93.9 Abnormal uterine and vaginal bleeding, unspecified; Z86.718 Personal history of other venous thrombosis and embolism
CPT/HCPCS: 58552; S2900; 36415; 85025; 86850; 86900; 86901; 88307; 99199; A9270; J0690; J1100; J1170; J1200; J1650; J1885; J2250; J2405; J2704; J3010; J7030; J7120; J7121

== ENCOUNTER 2023-12-28 17:32 | Emergency (ER) | payer OTHER, SELFPAY ==
--- NOTE | ~2023-12-28 | US_ITS ---
EXAMINATION: US venous doppler [facility] DATE: 12/28/2023 18:04 INDICATION: Left lower limb pain TECHNIQUE: Grayscale ultrasound images without and with compression and Doppler ultrasound images of the left lower extremity veins were obtained. COMPARISON: None. FINDINGS: The visualized portions of left common femoral vein, profunda (deep) femoral vein, femoral vein, popl iteal vein, peroneal veins, posterior tibial veins and greater saphenous vein outflow are patent. IMPRESSION: 1. No deep venous thrombosis in the left lower limb. Reviewed, dictated and finalized at location A.
[2023-12-28 17:34] VITALS: BP 144/75; PULSE 74; RESP 16; TEMP 36.8; O2SAT 100
--- NOTE | 2023-12-28 18:50 | ED.EXTPRO ---
HPI - Extremity Problem General Chief complaint: Extremity Problem,Nontraumatic Stated complaint: L calf pain Time Seen by Provider: 12/28/23 17:57 Source: patient Mode of arrival: ambulatory Limitations: no limitations History of Present Illness HPI Narrative: this is a 43-year-old female who presents to the ED for chief complaint of left calf pain onset today. Patient states that she was traveling recently and has had history of DVT in 2019 so she is here to rule out DVT today. Denies significant swelling. Denies any injury. Denies numbness, weakness, skin changes, rash. Related Data Allergies Allergy/AdvReac Type Severity Reaction Status Date / Time No Known Allergies Allergy Unknown Verified 06/03/23 07:23 Review of Systems Review of Systems: All systems as dictated in [facility] Past Medical History Medical History DVT (deep venous thrombosis) History of DVT (deep vein thrombosis) Labral tear of left hip joint Surgical History Surgical History Hx of section Status post hip surgery lt periacetabular osteotomy with labral repair Family History Family History Father Hypertension Grandparent Hypertension Social History Social History Smoking status: Never smoker Alcohol intake: current Drinks per week: 1 Alcohol use details: occasional Substance use: never Substance use type: does not use Living arrangements: with family Gender identity (if verbalized by the patient): Female Spiritual care concerns: No Exam Narrative: GENERAL: Well-appearing, well-nourished, and in no acute distress. HEAD: Normocephalic, atraumatic. EYES: PERRLA and EOMI. ENT: Nares clear, no rhinorrhea or epistaxis. Mucous membranes moist. Oropharynx without tonsillar hypertrophy exudate or other lesions. NECK: Supple. No adenopathy or masses. CHEST: No respiratory distress. Clear to auscultation. No wheezes rales or rhonchi HEART: Regular rate and rhythm. No murmur heard. Normal peripheral pulses. ABDOMEN: Soft, nontender, nondistended, normal active bowel sounds. MSK: Normal range of motion. No edema. No calf tenderness or erythema. SKIN: Warm, dry, no rash. NEURO: Alert and oriented x4. No focal deficits. PSYCH: Normal mood and affect. Course Vital Signs Vital signs: Vital Signs Temperature 98.3 F 12/28/23 17:34 Pulse Rate 74 12/28/23 17:34 Respiratory Rate 16 12/28/23 17:34 Blood Pressure 144/75 H 12/28/23 17:34 Pulse Oximetry 100 12/28/23 17:34 Oxygen Delivery Room Air 12/28/23 17:34 Temperature 98.3 F 12/28/23 17:34 Pulse Rate 74 12/28/23 17:34 Respiratory Rate 16 12/28/23 17:34 Blood Pressure 144/75 H 12/28/23 17:34 Pulse Oximetry 100 12/28/23 17:34 Oxygen Delivery Room Air 12/28/23 17:34 MDM - Extremity (Nontraumatic) MDM Narrative Medical decision making narrative: this is a 43-year-old female who presents to the ED for left calf pain and would like to rule out blood clot. Vitals are normal. Exam is benign overall. No calf swelling or tenderness. Ultrasound Doppler is negative for DVT. Pt will be discharged in stable condition. Return precautions given and supportive measures discussed. Pt is understanding and agreeable with plan for discharge and follow-up with PCP. Discharge Plan Discharge Clinical Impression: Pain of left calf Patient Disposition: Home, Self-Care Condition: Stable Instructions: Antibiotic Form Additional Instructions: exam today is reassuring. No blood clot on the ultrasound. If you have any new or worsening symptoms please return to the ER for further evaluation. Prescriptions: No Action hydrocodone-acetaminophen 5-325 mg tablet 1 tab
== END 2023-12-28 19:00 | disposition home or self-care (01) ==
PROVIDERS: Emergency Provider Physician Assistant; PCP Internal Medicine
DX: M79.662 Pain in left lower leg (principal); Z86.718 Personal history of other venous thrombosis and embolism
CPT/HCPCS: 93971; 99284

== ENCOUNTER 2024-05-26 10:19 | Outpatient (CLI) | payer OTHER, SELFPAY ==
--- NOTE | ~2024-05-26 | MM_ITS ---
EXAMINATION: MM screening corey BI w david HISTORY: Screening mammogram TECHNIQUE: Craniocaudal and mediolateral oblique 3-D tomosynthesis images were obtained and synthetic 2-D images were generated. CAD analysis was submitted and interpreted. COMPARISON: [id number], 04/09/2022, 03/18/2021 BREAST PARENCHYMAL COMPOSITION:Dense: The breasts are extremely dense, which lowers the sensitivity o f mammography. FINDINGS: No suspicious mass, calcification, or architectural distortion are identified in either dave ast to suggest malignancy. There has been no suspicious interval change. IMPRESSION: No mammographic evidence of malignancy. Recommend routine screening mammography in one year. BI-RADS Category 1: Negative Reviewed, dictated and finalized at location . [facility]
== END 2024-05-26 10:20 | disposition home or self-care (01) ==
LOC: ANHIMG 10:20
PROVIDERS: PCP Internal Medicine; Visit Provider Obstetrics & Gynecology
DX: Z12.31 Encounter for screening mammogram for malignant neoplasm of breast (principal)
CPT/HCPCS: 77063; 77067

== ENCOUNTER 2024-06-26 12:21 | Emergency (ER) | payer OTHER, SELFPAY ==
[2024-06-26 12:33] VITALS: BP 104/76; PULSE 67; RESP 16; TEMP 36.9; O2SAT 99
--- NOTE | 2024-06-26 12:49 | ED.URI ---
HPI - URI/Sore Throat General Chief Complaint: Upper Respiratory Infection Stated Complaint: Cough Time Seen by Provider: 06/26/24 12:49 Source: patient Mode of arrival: ambulatory Limitations: no limitations History of Present Illness HPI Narrative: Ayesha is a 43-year-old female patient presenting to the clinic today with complaints of cough and sinus congestion times 10 days. She reports she is coughing up green phlegm. Denies any fevers, chills, or body aches at this time. Denies any chest pain or shortness of breath. MD elicited complaint: cough, nasal congestion and sinus pain Related Data Allergies Allergy/AdvReac Type Severity Reaction Status Date / Time No Known Allergies Allergy Unknown Verified 06/26/24 12:22 Review of Systems Review of Systems: Pertinent positives per HPI. Patient denies any fever, chills, rash, headache, visual changes, dizziness, shortness of breath, chest pain, palpitations, nausea, vomiting, diarrhea, constipation, abdominal pain, or any urinary issues. PMFSH Past Medical History Medical History History of DVT (deep vein thrombosis) DVT (deep venous thrombosis) Labral tear of left hip joint Surgical History Surgical History Hx of section Status post hip surgery lt periacetabular osteotomy with labral repair Family History Family History Father Hypertension Grandparent Hypertension Social History Social History Smoking status: Never smoker Alcohol intake: current Drinks per week: 1 Alcohol use details: occasional Substance use: never Substance use type: does not use Living arrangements: with family Gender identity (if verbalized by the patient): Female Spiritual care concerns: No Comments At the time of my signature, I reviewed and agree with the nursing past medical, surgical, social, and family history. There is no relevant family history pertinent to the patient complaint. Exam Narrative: General: Well-developed, well nourished, in no apparent distress Head: Normocephalic, atraumatic Eyes: Pupils equally round and reactive to light bilaterally, EOM intact, sclera and conjunctive clear, no discharge, lids normal Ears: TMs intact and clear, ear canals clear, no drainage, grossly hearing normal. Nose: Nares patent, green nasal discharge, moderate inflammation, maxillary sinus tenderness. Mouth: Oral pharynx without lesions or masses, good dentition, MMM. Postnasal drip Neck: Supple, trachea midline, no enlargement of anterior or posterior cervical nodes, no thyroid masses or goiter palpable. Cardio: Regular rate and rhythm, s1 and s2 normal, no murmur appreciated. Resp: Clear to auscultation bilaterally, no rhonchi, rales, wheezing or rubs Course Course Emergency Course: Portions of this record may have been created with voice recognition software. Level of Care: Express Care Visit Vital Signs Vital signs: Vital Signs Temperature 36.9 C 06/26/24 12:33 Pulse Rate 67 06/26/24 12:33 Respiratory Rate 16 06/26/24 12:33 Blood Pressure 104/76 06/26/24 12:33 Pulse Oximetry 99 06/26/24 12:33 Oxygen Delivery Room Air 06/26/24 12:33 Temperature 36.9 C 06/26/24 12:33 Pulse Rate 67 06/26/24 12:33 Respiratory Rate 16 06/26/24 12:33 Blood Pressure 104/76 06/26/24 12:33 Pulse Oximetry 99 06/26/24 12:33 Oxygen Delivery Room Air 06/26/24 12:33 Vital signs reviewed MDM - URI/Sore Throat MDM Narrative Medical decision making narrative: At the time of visit patient is resting comfortably on the exam table. Patient appears to be nontoxic. Plan: I suspect patient has recurrent sinusitis. Prescription for Augmentin and prednisone was sent to the pharmacy. Supportive measures were discussed with the patient and they voiced understanding discharge instructions and agrees to treatment plan. Return precautions reviewed Differential Diagnosis Differential diagnosis: Likely upper respiratory infection, otitis media, sinusitis, viral infection, bronchitis, influenza, pharyngitis and other (COVID) Discharge Plan Discharge Clinical Impression: Sinusitis Qualifiers: Sinusitis location: maxillary Chronicity: acute Recurrence: non-recurrent Qualified Code(s): J01.00 - Acute maxillary sinusitis, unspecified Patient Disposition: Home, Self-Care Condition: Stable Instructions: Antibiotic Form, Sinusitis (ED) Additional Instructions: Take prescription medications only as prescribed-Augmentin and prednisone Increase fluids and stay well hydrated Tylenol/motrin for pain/fever Flonase and OTC antihistamines as directed Vicks vapor rub to open sinuses Sinus rinses for congestion Cepacol spray, cough drops, throat lozenges, warm tea with honey/lemon, gargle salt water to soothe throat BRAT diet for diarrhea Clear liquids x 24 hours then advance as tolerated for nausea/vomiting Go to the ED if you develop a worsening in your condition- high fever not controlled by Tylenol or Motrin, dehydration, weakness, lethargy, shortness of breath, or chest pain. Follow up with your PCP in 3-5 days if symptoms persist. Patient Language: [place] Prescriptions: New prednisone 20 mg tablet 40 mg PO DAILY 5 Days Qty: 10 0RF amoxicillin-pot clavulanate 875-125 mg tablet 1 tablet PO Q12H 10 Days Qty: 20 0RF Follow-up/Referrals: Jovani Irizarry DO [Primary Care Provider] - Time of Disposition: 12:44 Quality NIHSS Nursing Documentation ED NIHSS nursing documentation: reviewed/agree
== END 2024-06-26 12:50 | disposition home or self-care (01) ==
PROVIDERS: Emergency Provider Nurse Practitioner Family; PCP Internal Medicine
DX: J01.00 Acute maxillary sinusitis, unspecified (principal); Z86.718 Personal history of other venous thrombosis and embolism
CPT/HCPCS: 99213; G0463

== ENCOUNTER 2025-04-09 00:19 | Day surgery (SDC) | payer OTHER, SELFPAY ==
[2025-04-01 08:54] VITALS: BMI 21.5
--- OUTSIDE RECORDS SUMMARY | 2025-04-09 00:22 | XMS_ITS | Clinical Summary ---
Author Organization [facility] [place] Address [address] [place] [address] Phone Care Team Providers Care Undercoater Name Role Phone Jovani Irizarry DO Primary Care Provider Allergies No known active allergies Medications ibuprofen (MOTRIN) 600 mg Oral tabletIndication s:Left breast lump Take 600 mg by mouth every 6 hours as needed. Active aspirin (ECOTRIN EC) 81 mg Tablet, Delayed Release (E.C.) Take 81 mg by mouth daily. Active Active Problems Patient Care Coordination No te Formatting of this note migh t be different from the original. Primary Care: Jovani Irizarry DO Referring Provider: Prasad Pedersen MD [address] [facility] [address] [place] [address] Other: Problem Noted Date Diagnosed Date Acute deep vein thrombosis (DVT) of left peronea l vein 08/27/2019 Family History Medical History Relation Name Comments Colon Cancer Maternal Grandfather Heart Disease Maternal Grandmother Relation Name Status Comments Brother 1 Alive Brother 2 Alive Daughter Alive Father Alive Maternal Grandfather Maternal Grandmother Mother Alive Son Alive Social History Tobacco Use Types Packs/Day Years Used Date Smoking Tobacco: Never Smokeless Tobacco: Never Alcohol Use Standard Drinks/Week Comments Yes 0 (1 standard drink = 0.6 oz pur e alcohol) rarely/ SOCIALBLE Comments No Sex and Gender Information Value Date Recorded Sex Assigned at Not on file 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 Gender Identity Not on file Sexual Orientation Not on file Occupation Industry Job Start Date Job End Date Not on file Not on file Not on file Not on file Last Filed Vital Signs Vital Sign Reading Time Taken Comments Blood Pressure 135/84 10/29/2019 4:02 PM CDT Pulse 96 10/29/2019 4:02 PM CDT Temperature 36.8 C (98.3 F) 10/29/2019 4:02 PM CDT Respiratory Rate - - Oxygen Saturation 96% 10/29/2019 4:02 PM CDT Inhaled Oxygen Concentration - - Weight 54.9 kg (121 lb 1.6 oz) 10/29/2019 4:02 P M CDT Height 162.6 cm (5' 4) 10/29/2019 4:02 PM CDT Body Mass Index 20.79 10/29/2019 4:02 PM CDT Plan of Treatment Health Maintenance Due Date Last Done Comments DTAP/TDAP/TD VACCINES (1 - Tdap) 09/09/1998 HEPATITIS B VACCINES (1 of 3 - 19+ 3-dose series) 08/28 HPV/Cotest (21-29) 09/09/2000 HPV VACCINES (1 - 3-dose SCDM series) 09/09/2006 CERVICAL CANCER SCREENING 09/09/2009 HPV/Cotest (30-65) 09/09/2009 PAP SMEAR 09/09/2009 BREAST CANCER SCREENING 2019 01/07/2012 COLORECTAL SCREENING 09/09/2024 Colorectal Cancer Screening 09/09/2024 FIT-DNA Q 3 years 09/09/2024 FIT/FOBT Q 1 year 09/09/2024 Flex Sig/CT Colonography Q 5 years 09/09/2024 INFLUENZA VACCINE (#1) 2024 Procedures Procedure Name Priority Date/Time Associated Diagnosis Comments MAMMO DIAGNOSTIC UNI LEFT W OR WO CAD Routine 01/07/2012 from Last 3 Months or Most Recently Relevant to Health Maintenance Results * (ABNORMAL) MAMMO DIGITAL DIAG UNI LEFT (01/07/2012) Anatomical Region Laterality Modality Breast Left Other Prasad Mcmillan MD MAMMO ORDERABLES Xi l Result from Last 3 Months or Most Recently Relevant to Health Maintenance Insurance [facility] OPT[employer] PPO [id number] Care Teams Undercoater Relationship Specialty Start Date End Date Jovani Irizarry DO PCP - General 05/15/15
--- OUTSIDE RECORDS SUMMARY | 2025-04-09 00:22 | XMS_ITS | Clinical Summary ---
Author Organization [facility] Address [address] [place] [id number] Care Team Providers Care Head Cashier Name Role Phone Jovani Irizarry DO Primary Care Provider [phone] Allergies No known active allergies Medications No known medications Active Problems Problem Noted Date Diagnosed Date Retained orthopedic hardware 06/24/2020 Overview (06/24/2020): Added automatically from request for surgery [id number] Acute deep vein thrombosis (DVT) of left peronea l vein 08/27/2019 Tear of left acetabular labrum 02/15/2019 Overview (02/15/2019): Added automatically from request for surgery [id number] Congenital hip dysplasia 02/15/2019 Overview (02/15/2019): Added automatically from request for surgery [id number] Surgical History Surgery Date Site/Laterality Comments SECTION section SECTION IMPACTED THIRD MOLAR REMOVAL HIP OSTEOTOMY 04/04/2019 Left GONZALES, labral repair HYSTERECTOMY Medical History Medical History Date Comments PONV (postoperative nausea and vomiting) Motion sickness Family History Medical History Relation Name Comments Clotting disorder Brother Hypertension Father Anesthesia problems Neg Hx Relation Name Status Comments Brother Father Alive Mother Alive Social History Tobacco Use Types Packs/Day Years Used Date Smoking Tobacco: Former Cigarettes 0.1 2 1 997 - 1998 Smokeless Tobacco: Never Alcohol Use Standard Drinks/Week Comments Yes 0 (1 standard drink = 0.6 oz pur e alcohol) Social AUDIT-C Answer Date Recorded Q1: How often do you have a drink containing alc ohol? Monthly or less 08/05/2020 Q2: How many drinks containi ng alcohol do you have on a typical day when you are drinking? 1 or 2 08/05/2020 Q3: How often do you have si x or more drinks on one occasion? 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 Not on file Not on file Obstetrics History Para Term AB IAB SAB Ectopic Multiple Livin g Live Births 2 2 2 Date Outcome GA Total Labor Labor/2nd/3rd Weight Sex Type Anes PTL Antonia A1 A5 Name Clin Term Term Last Filed Vital Signs Vital Sign Reading Time Taken Comments Blood Pressure 113/67 08/05/2020 8:35 AM VRT MECHANIC Pulse 63 08/05/2020 8:40 AM VRT MECHANIC Temperature 36.9 C (98.4 F) 08/05/2020 8:35 AM VRT MECHANIC Respiratory Rate 16 08/05/2020 8:35 AM VRT MECHANIC Oxygen Saturation 100% 08/05/2020 8:40 AM VRT MECHANIC Inhaled Oxygen Concentration - - Weight 56.8 kg (125 lb 3.2 oz) 06/25/2024 2:05 P M VRT MECHANIC Height 162.6 cm (5' 4) 06/25/2024 2:05 PM VRT MECHANIC Body Mass Index 21.49 06/25/2024 2:05 PM VRT MECHANIC Plan of Treatment Health Maintenance Due Date Last Done Comments Breast Cancer Screening-Mammogram 1979 Colon Cancer Screening-Colonoscopy 1979 Depression Screening 1979 Hepatitis C Screening 1979 DTaP/Tdap/Td Vaccine (1 - Tdap) 09/09/1990 Varicella Vaccines (1 of 2 - 13+ 2-dose series) 1992 Hepatitis B Screening 09/09/1997 Regular Well Visit/Exam 18-64 09/09/1997 Pneumococcal vaccine <65 (1 of 2 - PCV) 09/09/1998 HPV Vaccines (1 - 3-dose SCDM series) 09/09/2006 Influenza Vaccine (#1) 2025 Medical Devices Implanted Type Area Hat Marker Device Identifier Shelf Expiration Date Model / Serial / Lot [employer] [id number] [place] Suture Microraptor Knotless Pk - [id number] Implanted:Qty: 2 on 04/04/2019 by Ace Puente MD at [facility] Left: Hip [employer] 11/24/2021 [id number] / / [id number] [employer] [id number] [place] Suture Microraptor Knotless Pk - [id number] Implanted:Qty: 2 on 04/04/2019 by Ace Puente MD at [facility] Left: Hip [employer] 09/28/2021 [id number] / / [id number] Explanted Type Area Hat Marker Device Identifier Shelf Expiration Date Model / Serial / Lot Synthes 214.910 4.5mm 8mm 110mm Self Tap Large Hexagonal Socket Cortical Screw - [id number] Implanted:Qty: 1 on 04/04/2019 by Ace Puente MD at [facility] Explanted:Qty: 1 on 08/05/2020 by Talha Kee MD at [facility] Left: Hip Synthes I 214.910 / / Synthes 214.880 4.5mm 8mm 80mm Self Tap Large Hexagonal Socket Cortical Screw - [id number] Implanted:Qty: 1 on 04/04/2019 by Ace Puente MD at [facility] Explanted:Qty: 1 on 08/05/2020 by Talha Kee MD at [facility] Left: Hip Synthes I 214.880 / / Synthes 214.864 4.5mm 8mm 64mm Self Tap Large Hexagonal Socket Cortex Screw Bone - [id number] Implanted:Qty: 1 on 04/04/2019 by Ace Puente MD at [facility] Explanted:Qty: 1 on 08/05/2020 by Talha Kee MD at [facility] Left: Hip Synthes I 214.864 / / Synthes 214.885 4.5mm 8mm 85mm Self Tap Large Hexagonal Socket Cortex Screw Bone - [id number] Implanted:Qty: 1 on 04/04/2019 by Ace Puente MD at [facility] Explanted:Qty: 1 on 08/05/2020 by Talha Kee MD at [facility] Left: Hip Synthes I 214.885 / / Insurance [facility] PLUS [facility] PL[facility] PL[facility] Care Teams Head Cashier Relationship Specialty Start Date End Date Jovani Irizarry DO PCP - General 09/04/12
[2025-04-09 12:16] VITALS: BP 116/87; PULSE 68; RESP 16; TEMP 36.7; O2SAT 99
[2025-04-09 12:17] VITALS: BMI 20.9
[2025-04-09] MEDS: LACTATED RINGERS 1,000 ML 150 ML IV CONT (12:45)
--- NOTE | 2025-04-09 13:05 | WPDANESEPPF ---
Anes - Initial Pre Proc Eval Procedure: Operation Date: 04/09/25 13:30 Proposed Procedures p Screening Colonoscopy - Mark Garcia MD Date/Time: 04/09/25 13:05 Surgeon: Mark Garcia MD Pre Op Diagnosis: Family history of malignant neoplasm of digestive Patient Data Age: 44 Gender: F Height: 1.63 m Weight: 55.4 kg Last Vital Signs Temp 36.7 C 04/09/25 12:16 Pulse 68 04/09/25 12:16 Resp 16 04/09/25 12:16 BP 116/87 04/09/25 12:16 Pulse Ox 99 04/09/25 12:16 O2 Del Method Room Air 04/09/25 12:16 Allergies Allergy/AdvReac Type Severity Reaction Status Date / Time No Known Allergies Allergy Unknown Verified 04/09/25 12:15 Home Medications ?Medication ?Instructions ?Recorded ?Confirmed ?Type cholecalciferol (vitamin D3) 25 25 mcg PO DAILY 04/01/25 04/09/25 History mcg (1,000 unit) chewable tablet (VitaJoy Daily D) vitamin B complex (Vitamins B 1 tablet PO DAILY 04/01/25 04/09/25 History Complex tablet) Patient hx anesthesia problems: none Family hx anesthesia problems: none Results Review: All pre-operative results and documents have been reviewed as part of the pre-operative evaluation. [facility] Past Medical History Medical History History of DVT (deep vein thrombosis) DVT (deep venous thrombosis) Labral tear of left hip joint Surgical History Surgical History H/O: hysterectomy (~06/03/23) with bilateral salpingectomy for excessive bleeding Hx of section Status post hip surgery lt periacetabular osteotomy with labral repair Family History Family History Father Hypertension Grandparent Hypertension Social History Social History Smoking status: Never smoker Alcohol intake: current Drinks per week: 1 Alcohol use details: occasional Substance use: never Substance use type: does not use Living arrangements: with family Gender identity (if verbalized by the patient): Female Spiritual care concerns: No Anes - Eval Final PreProcedure Day of Procedure 04/09/25 13:05 Patient weight: normal Heart: regular rate and rhythm Lungs: clear to auscultation and normal air movement Airway: Mallampati scale class II Neurological: alert and oriented Last oral intake: >/= 8 hours ASA classification: II Emergent: no Anesthetic plan: proceed Anesthesia type and monitoring: general GIVS and standard monitoring Results Review: All pre-operative results and documents have been reviewed as part of the pre-operative evaluation. Informed Consent: The patient's anesthetic plan and its attendant risks and benefits were discussed with the patient/family/POA. Questions were solicited and answers provided to the satisfaction of the patient/family/POA.
--- NOTE | 2025-04-09 13:17 | PM.HPGS ---
History of Present Illness History of Present Illness Consent: Risks, benefits, and alternatives have been discussed and questions answered. Patient agrees to proceed with procedure. Chief complaint: Family history of malignant neoplasm of digestive Narrative: Ayesha Lobo is a 44 year old female here for first screening colonoscopy Review of Systems Review of Systems: All systems reviewed & are unremarkable except as noted in HPI and below PMFSH Past Medical History Medical History History of DVT (deep vein thrombosis) DVT (deep venous thrombosis) Labral tear of left hip joint Surgical History Surgical History H/O: hysterectomy (~06/03/23) with bilateral salpingectomy for excessive bleeding Hx of section Status post hip surgery lt periacetabular osteotomy with labral repair Family History Family History Father Hypertension Grandparent Hypertension Social History Social History Smoking status: Never smoker Alcohol intake: current Drinks per week: 1 Alcohol use details: occasional Substance use: never Substance use type: does not use Living arrangements: with family Gender identity (if verbalized by the patient): Female Spiritual care concerns: No Meds Home Medications and Allergies Home Medications ?Medication ?Instructions ?Recorded ?Confirmed ?Type cholecalciferol (vitamin D3) 25 25 mcg PO DAILY 04/01/25 04/09/25 History mcg (1,000 unit) chewable tablet (VitaJoy Daily D) vitamin B complex (Vitamins B 1 tablet PO DAILY 04/01/25 04/09/25 History Complex tablet) Allergies Allergy/AdvReac Type Severity Reaction Status Date / Time No Known Allergies Allergy Unknown Verified 04/09/25 12:15 Vital Signs Vital Signs - 24 hr 04/09/25 12:16 Temperature 98.0 F Pulse Rate 68 Respiratory Rate 16 Blood Pressure 116/87 Pulse Oximetry 99 Oxygen Delivery Room Air Exam Const: General: comfortable and no acute distress HENMT: Face/Nose/Sinus: Normal nares present Eyes: General: appearance normal, both eyes and all related structures Neck: Neck: no JVD Resp: Auscultation: clear to auscultation bilaterally Cardio: Rate: regular rate Rhythm: regular rhythm GI: Inspection: non-distended GI Palp: Yes Soft to palpation Skin: General skin exam: normal color Extrem: General: normal to inspection Psych: Mental Status: mental status grossly normal Assessment and Plan Assessment and plan (1) Screening for colon cancer: Code(s): Z12.11 - Encounter for screening for malignant neoplasm of colon Status: Acute Assessment and Plan: colonoscopy
[2025-04-09 13:37] VITALS: BP 100/54; PULSE 73; RESP 17; O2SAT 100
[2025-04-09 13:47] VITALS: BP 105/58; PULSE 65; RESP 18; O2SAT 100
== END 2025-04-09 14:03 | disposition home or self-care (01) ==
PROVIDERS: PCP Internal Medicine; Visit Provider Internal Medicine Gastroenterology
PROC: 0DJD8ZZ Inspection of Lower Intestinal Tract, Via Natural or Artificial Opening Endoscopic (ICD-10-PCS; CPT 45378; principal; 2025-04-09 13:30)
DX: Z12.11 Encounter for screening for malignant neoplasm of colon (principal); K64.8 Other hemorrhoids
CPT/HCPCS: 45378; J2003; J2704; J7120

== ENCOUNTER 2025-05-15 15:22 | Outpatient (CLI) | payer OTHER, SELFPAY ==
--- NOTE | ~2025-05-15 | US_ITS ---
EXAMINATION: US thyroid DATE: 05/15/2025 16:04 INDICATION: Enlarged left thyroid. Thyroid nodule. TECHNIQUE: Multiple ultrasound images of the thyroid were obtained. COMPARISON: 06/17/2015 FINDINGS: The right thyroid lobe measures 4.6 x 1.5 x 1.3 cm. The left thyroid lobe measures 5.7 x 2.2 x 1.8 cm. Chronic 9 mm rim calcified nodule with smooth margins of the calcification obscuring the center of the nodule (TI-RADS 4, moderately suspicious , FNA if >=1.5 cm, annual followup is >=1 cm). There is an additional 6 mm TI RADS 1 cystic nodule at the mid right thyroid. Finally there is a 1.0 cm solid isoechoic nodule which is wider than tall with smooth margins and without echogenic foci in the deep mid right thyroid (TI-RADS 3, mildly suspicious , FNA if >=2.5 cm, annual followup is >1.5 cm). No interval change in a predominantly solid isoechoic hypoechoic nodule with lobular margins and central coarse shadowing calcifications which measures 3.0 x 2.0 x 2.5 cm nodule which previously measured 3.0 x 2.4 x 1.7 cm and which was biopsied on 06/24/2015 (TI-RADS 5, highly suspicious , FNA if >=1.0 cm, annual followup is >0.5 cm). IMPRESSION: 1. Multinodular goiter with no interval change in the largest 3.0 cm TI RADS 5 nodule at the mid inferior left thyroid lobe which was biopsied on 06/24/15. Correlate with pathology from the prior biopsy. No other nodules meeting criteria for biopsy and annual ultrasound follow-up would be recommended. Reviewed, dictated and finalized at location A. TESTER IMPRESSION: 1. Multinodular goiter with no interval change in the largest 3.0 cm TI RADS 5 nodule at the mid inferior left thyroid lobe which was biopsied on 06/24/15. Cor relate with pathology from the prior biopsy. No other nodules meeting criteria for biopsy and annual ultrasound follow-up would be recommended.
--- NOTE | ~2025-05-15 | US_ITS ---
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 Findings: Correlating with the palpable area within the deep subcutaneous tissues there is a solid focus measuring 2.7 x 0.5 x 2.4 cm. IMPRESSION: Nonspecific soft tissue lesion. Correlation with contrast-enhanced CT or MRI is recommended Reviewed, dictated and finalized at location P. DING INSULATION SUPERVISOR
== END 2025-05-15 15:23 | disposition home or self-care (01) ==
LOC: MICIMG 15:23
PROVIDERS: PCP Internal Medicine
DX: E04.2 Nontoxic multinodular goiter (principal); R22.2 Localized swelling, mass and lump, trunk
CPT/HCPCS: 76536; 76705

== ENCOUNTER 2025-05-28 07:23 | Outpatient (CLI) | payer OTHER, SELFPAY ==
--- NOTE | ~2025-05-28 | MM_ITS ---
EXAMINATION: MM screening corey BI w david HISTORY: Screening. TECHNIQUE: Craniocaudal and mediolateral oblique 3-D tomosynthesis images were obtained and synthetic 2-D images were generated. CAD analysis was submitted and interpreted. COMPARISON: 2023, 2022, and 2021 BREAST PARENCHYMAL COMPOSITION: Dense: The breasts are heterogeneously dense, which may obscure small masses. FINDINGS: No suspicious masses are seen. There are no suspicious calcifications. No unexplained architectural distortion is seen. There are no skin or nipple abnormalities identified. There is no adenopathy seen on the images submitted. IMPRESSION: No mammographic evidence to suggest malignancy is seen. The patient may return to screening mammography as per ACR guidelines. BI-RADS 1 - Negative. Reviewed, dictated and finalized at location C. CLOSER MECHANIC
== END 2025-05-28 07:24 | disposition home or self-care (01) ==
LOC: ANHFOHIMG 07:24
PROVIDERS: PCP Internal Medicine; Visit Provider Obstetrics & Gynecology
DX: Z12.31 Encounter for screening mammogram for malignant neoplasm of breast (principal)
CPT/HCPCS: 77063; 77067